=== PATIENT | female | born 1965 | race Caucasian/White ===

== ENCOUNTER → 2022-10-07 11:11 | Outpatient (BNVA) | payer OTHER, SELFPAY | PROVIDERS: PCP Family Medicine; Visit Provider Nurse Practitioner Family | DX: R68.89 Other general symptoms and signs (principal); J01.90 Acute sinusitis, unspecified; B96.89 Other specified bacterial agents as the cause of diseases classified elsewhere; I10 Essential (primary) hypertension; R09.82 Postnasal drip; J40 Bronchitis, not specified as acute or chronic | CPT/HCPCS: 87426 ==